=== PATIENT | female | born 1935 | race Hispanic/Latino ===

== ENCOUNTER 2018-01-12 15:03 | Observation (INO) | payer OTHER ==
[~2018-01-12] VITALS: Ht 144.8 cm; Wt 59.9 kg
[~2018-01-12 15:03] MED LIST: ALPRAZOLAM0.5 MG PO; ATENOLOL50 MG PO; NORCO 5-325 TA1 EACH PO; PRIMIDONE50 MG PO; Z.0.LOSARTAN POTAS10 PO; Z.0.NIFEDICAL XL60 M PO; Z.0.SIMVASTATIN40 MG PO; Z.1.ALPRAZOLAM0.25 M PO; Z.1.CARBAMAZEPINE200 PO
[2018-01-12] MEDS ORDERED: ASPIRIN 81 MG CHEW TAB PO ONE (15:30)
[2018-01-12 15:52] LABS: BASOPHILS % 0.3 % (0.0-1.0); HEMATOCRIT 35.4 % (34.2-44.1); HEMOGLOBIN 12.1 g/dL (12.0-16.0); LYMPHOCYTES # (AUTO) 2.2 (1.0-3.2); LYMPHOCYTES % 22.4 % (18.0-39.1); MEAN CORPUSCULAR HEMOGLOBIN 27.8 pg (28-32); MEAN CORPUSCULAR HGB CONC 34.2 g/dL (31-35); MEAN CORPUSCULAR VOLUME 81.2 fL (81-99); MONOCYTES % 9.8 % (4.4-11.3); NEUTROPHILS # (AUTO) 6.7 (2.1-6.9); NEUTROPHILS % 66.5 % (38.7-80.0); PLATELET COUNT 335 x10e3/uL (140-360); RED BLOOD COUNT 4.36 x10e6/uL (3.6-5.1)
[2018-01-12 16:04] LABS: BILIRUBIN,URINE NEGATIVE (NEGATIVE); CLARITY,URINE CLEAR (CLEAR); COLOR,URINE YELLOW (YELLOW); KETONES,URINE NEGATIVE (NEGATIVE); LEUKOCYTE ESTERASE ,URINE TRACE (NEGATIVE); NITRITE,URINE NEGATIVE (NEGATIVE); PROTEIN,URINE DIPSTICK NEGATIVE (NEGATIVE); URINE UROBILINOGEN 0.2 mg/dL (0.2 - 1)
[2018-01-12 16:06] LABS: BACTERIA,URINE MANY /HPF; EPITHELIAL CELLS,URINE RARE /LPF
[2018-01-12 16:11] LABS: ALANINE AMINOTRANSFERASE 18 IU/L (0-55); ALBUMIN 3.6 g/dL (3.5-5.0); ALBUMIN/GLOBULIN RATIO 0.8 (0.8-2.0); ALKALINE PHOSPHATASE 76 IU/L (40-150); ANION GAP 17.2 mmol/L (8-16); BLOOD UREA NITROGEN 20 mg/dL (7-26); BUN/CREATININE RATIO 24 (6-25); CALCIUM 9.7 mg/dL (8.4-10.2); CARBON DIOXIDE 22 mmol/L (22-29); CHLORIDE 99 mmol/L (98-107); CREATINE KINASE 71 IU/L (29-168); CREATININE, SERUM 0.84 mg/dL (0.57-1.11); EST GLOMERULAR FILTRATION RATE > 60 ML/MIN (60-); GLUCOSE 107 mg/dL (74-118); POTASSIUM 3.2 mmol/L (3.5-5.1); SODIUM 135 mmol/L (136-145)
--- NOTE | 2018-01-12 16:26 | Diagnostic Imaging Report ---
PROCEDURE: Frontal and lateral views of the chest. COMPARISON: 03/14/16 INDICATIONS: COUGH FINDINGS: Lines/tubes: None. Lungs: The lungs are well inflated. Central peribronchovascular thickening/cuffing. Mildly increased right lower lung field haziness. Questionable 3 mm right lower lobe lung nodule. Unchanged right lower lung field linear scarring. Pleura: There is no pleural effusion or pneumothorax. Heart and mediastinum: The heart and the mediastinum are normal. Bones: Generalized demineralization limits evaluation. Degenerative changes of the spine. No acute bony abnormality. IMPRESSION: Central peribronchovascular thickening/cuffing. Mildly increased right lower lung field haziness. Underlying infiltrate cannot be excluded. Questionable 3 mm right lower lobe lung nodule. Dictated by: Leeroy Maddox M.D. on 01/12/2018 at 16:29 Electronically approved by: Leeroy Maddox M.D. on 01/12/2018 at 16:29
[2018-01-12] MEDS ORDERED: POTASSIUM CHLORIDE 20 MEQ TAB CR PO STA (16:47)
[2018-01-12] MEDS ORDERED: SODIUM CHLORIDE FLUSH 10 ML SYR INJ PRN (17:00)
[2018-01-12] MEDS ORDERED: AZITHROMYCIN 500MG/SOD CHL 0.9% 250ML BAG IV SCH (17:00)
--- NOTE | 2018-01-12 17:22 | Diagnostic Imaging Report ---
Examination: CT head without contrast Clinical Indication: Fatigue. Technique: Transaxial noncontrast images from the skull base through the vertex were obtained. Sagittal and coronal reformatted images were done. Comparison: Head CT performed July 09, 2010. Findings: Scalp: No abnormalities. Bones: Intact. No fractures. No blastic or lytic lesions. Brain sulci: Mild volume loss for patient's age. Ventricles: No hydrocephalus. Extra-axial space: No abnormalities. Parenchyma: There are mild patchy areas of low-attenuation within subcortical and periventricular white matter, nonspecific, but could represent microvascular ischemic disease. No masses, hemorrhage, or acute or chronic cortical based vascular insults. Suprasellar region: No abnormalities. Craniocervical junction: The foramen magnum is patent. No Chiari one malformation. Incidental findings: Atherosclerotic calcification of the cavernous and supraclinoid internal carotid and V4 segments of the bilateral vertebral arteries. Impression: 1. No new or acute intracranial abnormality. No change from prior head CT performed July 09, 2010. 2. Mild chronic microvascular ischemic change. Signed by: Dr. Enriqueta Ramos M.D. on 01/12/2018 5:19 PM
--- OUTSIDE RECORDS SUMMARY | 2018-01-12 17:29 | XMS REPORT ---
Author Author [facility] Address Unknown Phone Unavailable Care Team Providers [facility] [employer] Name Role Phone MERI MONTERO Unavailable Unavailable Problems This patient has no known problems. Allergies, Adverse Reactions, Alerts This patient has no known allergies or adverse reactions. Medications This patient has no known medications. Results Test Description Test Time Test Comments Text Results Atomic Results Result Comments CHEST 2 VIEWS [place] [address] Patient Name: ANJU VIEIRA MR #: [id number] : 1935 Age/Sex: 82/F Req #: [id number] Adm Physician: Ordered by: ALTHEA COYLE Report #: [id number] Location: ER Room/Bed: _ Procedure: [id number] DX/CHEST 2 VIEWS Exam Date: Exam Time: REPORT STATUS: Signed PROCEDURE: Frontal and lateral views of the chest. COMPARISON: 03/14/16 INDICATIONS: COUGH FINDINGS: Lines/tubes: None. Lungs: The lungs are well inflated. Central peribronchovascular thickening/cuffing. Mildly increased right lower lung field haziness. Questionable 3 mm right lower lobe lung nodule. Unchanged right lower lung field linear scarring. Pleura: There is no pleural effusion or pneumothorax. Heart and mediastinum: The heart and the mediastinum are normal. Bones: Generalized demineralization limits evaluation. Degenerative changes of the spine. No acute bony abnormality. IMPRESSION: Central peribronchovascular thickening/cuffing. Mildly increased right lower lung field haziness. Underlying infiltrate cannot be excluded. Questionable 3 mm right lower lobe lung nodule. Dictated by: Leeroy Vanegas M.D. on 01/12/2018 at 16:29 Electronically approved by: Leeroy Vanegas M.D. on 01/12/2018 at 16:29 Dictated By: LEEROY VANEGAS MD 28 Transcribed By: GISSEL on 01/12/181628 COPY TO: ALTHEA COYLE CT BRAIN WO [place] [address] Patient Name: ANJU VIEIRA MR #: [id number] : 1935 Age/Sex: 82/F Req #: [id number] Adm Physician: Ordered by: ALTHEA COYLE Report #: [id number] Location: ER Room/Bed: _ Procedure: [id number] CT/CT BRAIN WO Exam Date: 01/12/18 Exam Time: 1613 REPORT STATUS: Signed Examination: CT head without contrast Clinical Indication: Fatigue. Technique: Transaxial noncontrast images from the skull base through the vertex were obtained. Sagittal and coronal reformatted images were done. Comparison: Head CT performed July 09, 2010. Findings: Scalp: No abnormalities. Bones: Intact. No fractures. No blastic or lytic lesions. Brain sulci: Mild volume loss for patient's age. Ventricles: No hydrocephalus. Extra- axial space: No abnormalities. Parenchyma: There are mild patchy areas of low-attenuation within subcortical and periventricular white matter, nonspecific, but could represent microvascular ischemic disease. No masses, hemorrhage, or acute or chronic cortical based vascular insults. Suprasellar region: No abnormalities. Craniocervical junction: The foramen magnum is patent. No Chiari one malformation. Incidental findings: Atherosclerotic calcification of the cavernous and supraclinoid internal carotid and V4 segments of the bilateral vertebral arteries. Impression: 1. No new or acute intracranial abnormality. No change from prior head CT performed July 09, 2010. 2. Mild chronic microvascular ischemic change. Signed by: Dr. Enriqueta Ramos M.D. on 01/12/2018 5:19 PM Dictated By: ENRIQUETA HIDALGO MD 18 Transcribed By: BRENDEN on 01/12/181718 COPY TO: ALTHEA COYLE
[2018-01-12] MEDS: SODIUM CHLORIDE 0.9% 1000ML 1,000 ML IV SCH (18:00)
[2018-01-12] MEDS: CEFTRIAXONE SOD 1 GM VIAL IV SCH (18:00)
[2018-01-12] MEDS: AZITHROMYCIN 500MG/NS 250 ML 250 ML IV SCH (18:10)
[2018-01-12 21:15] VITALS: BP 169/74
[2018-01-12 21:47] VITALS: BP 169/74
[2018-01-13] VITALS: BP 142/63
[2018-01-13] MEDS ORDERED: LEXAPRO10 MG PO (04:51)
[2018-01-13] MEDS ORDERED: NIFEDIPINE20 MG PO (04:52)
[2018-01-13 05:48] VITALS: BP 133/69
[2018-01-13] MEDS: SODIUM CHLORIDE 0.9% 1000ML 1,000 ML IV SCH (06:00)
[2018-01-13 07:09] LABS: CREATINE KINASE MB 1.6 ng/mL (0-5.0)
[2018-01-13 07:40] LABS: ALANINE AMINOTRANSFERASE 17 IU/L (0-55); ALBUMIN 3.1 g/dL (3.5-5.0); ALBUMIN/GLOBULIN RATIO 0.7 (0.8-2.0); ALKALINE PHOSPHATASE 64 IU/L (40-150); ANION GAP 13.6 mmol/L (8-16); BLOOD UREA NITROGEN 12 mg/dL (7-26); BUN/CREATININE RATIO 17 (6-25); CALCIUM 9.4 mg/dL (8.4-10.2); CARBON DIOXIDE 21 mmol/L (22-29); CHLORIDE 107 mmol/L (98-107); CREATININE, SERUM 0.72 mg/dL (0.57-1.11); EST GLOMERULAR FILTRATION RATE > 60 ML/MIN (60-); GLUCOSE 100 mg/dL (74-118); POTASSIUM 3.6 mmol/L (3.5-5.1); SODIUM 138 mmol/L (136-145)
[2018-01-13 08:00] VITALS: BP 139/62
[2018-01-13] MEDS ORDERED: HYDROCODONE/APAP 5MG-325MG TAB PO PRN (09:15)
[2018-01-13] MEDS ORDERED: BENZONATATE 100 MG CAP PO PRN (11:30)
[2018-01-13] MEDS ORDERED: ALBUTEROL/IPRATROPIUM 3 ML NEB NEB PRN (11:30)
[2018-01-13] MEDS: LOSARTAN POTASSIUM 100 MG TAB PO SCH (11:52)
[2018-01-13] MEDS: NIFEDIPINE CR 30 MG TAB PO SCH (11:53)
[2018-01-13] MEDS: ESCITALOPRAM OXALATE 10 MG TAB PO SCH (11:53)
[2018-01-13 12:00] VITALS: BP 122/57
--- NOTE | 2018-01-13 12:18 | Diagnostic Imaging Report ---
EXAM: CT Chest WITHOUT contrast INDICATION: \S\possible pneumonia/ lung spot COMPARISON: Chest radiograph 01/12/2018 TECHNIQUE: Chest was scanned utilizing a multidetector helical scanner from the lung apex through the level of the adrenal glands without administration of IV contrast. Absence of intravenous contrast decreases sensitivity for detection of lymphadenopathy and vascular pathology. Coronal and sagittal reformations were obtained. Routine protocol was performed. IV CONTRAST: None COMPLICATIONS: None RADIATION DOSE: Total DLP: 448.4 mGy*cm Estimated effective dose: (DLP x 0.014 x size factor) mSv CTDIvol has been reviewed. It is below the limits set by the Radiation Protocol Committee (RPC). FINDINGS: LINES/ TUBES: None. LUNGS AND AIRWAYS: Multifocal airspace patchy airspace opacities. More rounded opacities in the left lower lobe measure 1.5 cm (series 3 image 37) and 1.1 cm in the right upper lobe (series 3 image 35). Airways are normal. PLEURA: The pleural spaces are clear. HEART AND MEDIASTINUM: The thyroid gland is normal. No mediastinal, hilar or axillary lymphadenopathy. The heart is normal in size.. There is no pericardial effusion. UPPER ABDOMEN: Small hiatal hernia. Moderate pancreatic atrophy. Thickened adrenal glands likely reflecting hyperplasia. BONES: Partially visualized mucous retention cyst or polyp in the left maxillary sinus versus incompletely visualized focal area mucosal thickening. Nonaggressive sclerosis of the anterior aspect of T4. Degenerative changes of the spine. SOFT TISSUES: Unremarkable. IMPRESSION: Findings concerning for multifocal pneumonia. Some of the opacities which appear more rounded may also represent pneumonia. Recommend follow-up chest CT without contrast in 3 months to document resolution. Signed by: DR. Larry Garcia MD on 01/13/2018 12:15 PM
[2018-01-13] MEDS: LORATADINE 10 MG TAB PO SCH (13:07)
--- NOTE | 2018-01-13 14:30 | History and Physical ---
REASON FOR OBSERVATION: Possible pneumonia HISTORY OF PRESENT ILLNESS: Patient is an 82-year-old female with cough for the past few weeks. The patient is also with coughing on palpation. The patient came to the PCP and was sent to the emergency room for evaluation. EKG is normal sinus rhythm. The patient's lab work otherwise unremarkable. She had a normal white cell count of 10. She does have a low potassium level of 3.2. Sodium is 135. The patient is otherwise stable. Chest x-ray showed possible basilar infiltrate. The patient is placed in observation for further evaluation. No chest pain. No abdominal pain. No vomiting. No melena. PAST MEDICAL HISTORY: Hypertension and depression. Hyperlipidemia, history of leukemia in 2004. Anxiety. Benign tremor. Trigeminal neurology and osteoporosis. HOME MEDICATIONS: List is reviewed. ALLERGIES: PENICILLIN. PAST SURGICAL HISTORY: Noncontributory. SOCIAL HISTORY: Patient was an ex-smoker but quit many years ago. No alcohol consumption. No recreational drugs. REVIEW OF SYSTEMS: Cough. No shortness of breath. No abdominal pain. No chest pain. PHYSICAL EXAMINATION: VITAL SIGNS: Temperature is 98. Blood pressure 139/62. Pulse rate 90. Respirations 18. GENERAL: The patient is in no acute distress. She is awake. HEENT: Normocephalic, atraumatic and anicteric. NECK: Supple grossly. PULMONARY: Diminished breath sounds at bases with a few coarses. CARDIOVASCULAR: Is regular rate and rhythm. ABDOMEN: Soft and unremarkable. EXTREMITIES: No cyanosis or edema. NEUROLOGIC: No gross focal deficit. LABORATORY: Sodium now is 138. Potassium 3.6, chloride 107, bicarb 21, BUN 12, creatinine 0.7. Glucose 100. WBC 10. Hemoglobin 12.1. Hematocrit 35. Platelets is 335,000. Chest x-ray shows central peribronchovascular thickening and cuffing with mildly increased right lower lung field haziness. Underlying infiltrate cannot be ruled out. Brain CT mild chronic microvascular ischemic changes, but there is no new abnormality. IMPRESSION: 1. Possible pneumonia of the lung. 2. Acute bronchitis. 3. Mildly low sodium and hypokalemia, most likely secondary to multifactorial such as infection. PLAN: IV fluid rehydration is done. IV antibiotics of azithromycin and Rocephin. Will give the patient cough medication and nebulizer treatment as needed. Increase activity. Discontinue IV fluids for now. Will get a CT scan of the chest without IV contrast. Patient will continue with observation. Should be able to go home within 24 to 48 hours. Job#: [id number] SONAM
[2018-01-13 16:00] VITALS: BP 138/60
[2018-01-13] MEDS: AZITHROMYCIN 500MG/NS 250 ML 250 ML IV SCH (16:56)
[2018-01-13] MEDS: CEFTRIAXONE SOD 1 GM VIAL IV SCH (16:56)
[2018-01-13] MEDS: BENZONATATE 100 MG CAP PO SCH ×2 (16:56→20:19)
[2018-01-13 20:14] VITALS: BP 160/74
[2018-01-13] MEDS ORDERED: ATENOLOL 50 MG TAB PO SCH (21:00)
[2018-01-13] MEDS ORDERED: SIMVASTATIN 40 MG TAB PO SCH (21:00)
[2018-01-14 00:39] VITALS: BP 144/65
[2018-01-14 04:00] VITALS: BP 142/66
[2018-01-14 06:16] LABS: BASOPHILS % 0.5 % (0.0-1.0); HEMOGLOBIN 11.7 g/dL (12.0-16.0); LYMPHOCYTES # (AUTO) 1.8 (1.0-3.2); LYMPHOCYTES % 28.2 % (18.0-39.1); MEAN CORPUSCULAR HEMOGLOBIN 27.9 pg (28-32); MEAN CORPUSCULAR HGB CONC 34.4 g/dL (31-35); MONOCYTES % 14.7 % (4.4-11.3); NEUTROPHILS # (AUTO) 3.6 (2.1-6.9); NEUTROPHILS % 55.5 % (38.7-80.0); PLATELET COUNT 267 x10e3/uL (140-360); RED CELL DISTRIBUTION WIDTH 13.1 % (11.7-14.4)
[2018-01-14 06:39] LABS: ANION GAP 13.3 mmol/L (8-16); BLOOD UREA NITROGEN 10 mg/dL (7-26); BUN/CREATININE RATIO 15 (6-25); CALCIUM 9.3 mg/dL (8.4-10.2); CARBON DIOXIDE 23 mmol/L (22-29); CHLORIDE 103 mmol/L (98-107); CREATININE, SERUM 0.68 mg/dL (0.57-1.11); EST GLOMERULAR FILTRATION RATE > 60 ML/MIN (60-); GLUCOSE 96 mg/dL (74-118); POTASSIUM 3.3 mmol/L (3.5-5.1); SODIUM 136 mmol/L (136-145)
[2018-01-14 08:00] VITALS: BP 140/79
[2018-01-14] MEDS: ESCITALOPRAM OXALATE 10 MG TAB PO SCH (09:00)
[2018-01-14] MEDS: LORATADINE 10 MG TAB PO SCH (09:00)
[2018-01-14] MEDS: NIFEDIPINE CR 30 MG TAB PO SCH (09:00)
[2018-01-14] MEDS: BENZONATATE 100 MG CAP PO SCH (09:00)
[2018-01-14] MEDS: LOSARTAN POTASSIUM 100 MG TAB PO SCH (10:20)
[2018-01-14] MEDS ORDERED: POTASSIUM CHLORIDE 10 MEQ TABCR PO ONE (10:30)
[2018-01-14] MEDS ORDERED: DOXYCYCLINE HYCLATE TABLET 100 MG TAB PO ONE (10:30)
[2018-01-14] MEDS ORDERED: LEVOFLOXACIN 500 MG TAB PO ONE (12:00)
--- NOTE | 2018-01-14 18:51 | Discharge Summary ---
PCP: Dr. Ghanshyam Reyes FINAL DIAGNOSES 1. Multifocal pneumonia. No sepsis. No more white blood cell count. Resolved fever. 2. Baseline hypertension with adjustment of hypertensive medication. 3. Electrolyte disorder low potassium, replaced. SUMMARY: Patient is an 82-year-old female, not feeling well, with cough for the past few weeks. Patient came in with low-grade fever. Cough did not resolve. Patient's chest x-ray showed possible pneumonia. Therefore, a CT of the chest was done. CT of chest does confirm multifocal pneumonia area. There is some area of opacity that may need repeated CT scan to document resolution. Recommend the patient to have 3 months to document resolution of the lesion on the CT scan. The patient is stable. She tolerated her treatment. Her cough has now significantly improved. The patient has no wheezing. Electrolyte disorder corrected. White cell count, WBC was 6.5, hemoglobin, hematocrit 11.7 and 34 respectively. Blood culture has been negative. The patient is stable. She will go home today. She will follow up with Dr. Ghanshyam Reyes next week to make sure that her blood pressure is stable. She may repeat blood work for correction of the potassium. I recommend the patient to have a repeated CT scan approximately 6 weeks or so. Patient is, otherwise, stable. She is much better improved. She is afebrile over 24 hours and the patient will go home today with 1. Levaquin 500 mg once a day for 7 days. 2. Doxycycline monohydrate 100 mg b.i.d. for 7 days. 3. Nifedipine XL [address] of the 90 mg that she had at home. 4. Tessalon Glennes p.r.n. 5. Claritin daily. 6. Mucinex twice a day. Patient stable, discharged home, follow up as an outpatient. Job#: [id number] CQ
== END 2018-01-14 13:20 | disposition home or self-care (01) ==
LOC: ER 15:03 → ERHOLD 17:26 → MED/SURG2 21:01
PROVIDERS: ADMIT Internal Medicine; ATTEND Internal Medicine
DX: J18.9 Pneumonia, unspecified organism (principal); N39.0 Urinary tract infection, site not specified; E87.6 Hypokalemia; Z87.891 Personal history of nicotine dependence; J20.9 Acute bronchitis, unspecified; I10 Essential (primary) hypertension
CPT/HCPCS: 36415 ×3; 70450; 71046; 71250; 80048; 80053 ×2; 80156; 81001; 82550 ×2; 82553 ×2; 83605; 84484 ×2; 85025 ×2; 87040; 87400; 93005; 99284; G0378 ×3; J0456 ×2; J0696 ×2; J7030 ×2

== ENCOUNTER 2022-01-06 17:10 | Emergency (ER) | payer MEDICARE, OTHER ==
[~2022-01-06] VITALS: Ht 152.4 cm; Wt 45.4 kg
[~2022-01-06 17:10] MED LIST changes: +LEXAPRO10 MG PO; +NIFEDIPINE20 MG PO
[2022-01-06] MEDS ORDERED: LIDOCAINE HCL 1% LOCAL INJ 20 ML VIAL INJ STA (17:44)
[2022-01-06] MEDS ORDERED: DOXYCYCLINE HY100 MG PO (18:01)
== END 2022-01-06 18:49 | disposition home or self-care (01) ==
LOC: FSED 17:39
DX: S01.81XA Laceration without foreign body of other part of head, initial encounter (principal); W18.39XA Other fall on same level, initial encounter; Y93.01 Activity, walking, marching and hiking; Y92.89 Other specified places as the place of occurrence of the external cause; I10 Essential (primary) hypertension; E78.00 Pure hypercholesterolemia, unspecified; R25.1 Tremor, unspecified; F41.9 Anxiety disorder, unspecified; Z85.6 Personal history of leukemia
CPT/HCPCS: 70450; 70486; 93005; 99283